=== PATIENT | male | born 1950 | race Caucasian/White ===

== ENCOUNTER 2017-10-24 13:34 | Emergency (ER) | payer OTHER ==
[~2017-10-24] VITALS: Ht 188 cm; Wt 96.9 kg
[2017-10-24 17:44] VITALS: BP 165/87
== END 2017-10-24 17:46 | disposition home or self-care (01) ==
LOC: EME 13:34
DX: S61.412A Laceration without foreign body of left hand, initial encounter (principal); S01.81XA Laceration without foreign body of other part of head, initial encounter; Z23 Encounter for immunization; W45.8XXA Other foreign body or object entering through skin, initial encounter
CPT/HCPCS: 99281; 99285